=== PATIENT | male | born 1985 | race Caucasian/White ===

== ENCOUNTER 2017-12-13 10:50 | Outpatient (CLI) | payer SELFPAY | END 2017-12-13 10:51 | LOC: LAB.R 10:50 | PROVIDERS: ATTEND Nurse Practitioner Family | DX: R36.0 Urethral discharge without blood (principal) | CPT/HCPCS: 87491; 87591 ==

== ENCOUNTER 2018-03-15 08:00 | Outpatient (CLI) | payer SELFPAY | END 2018-03-15 08:01 | disposition home or self-care (01) | LOC: LAB.R 08:00 | PROVIDERS: ATTEND Nurse Practitioner Family | DX: L98.9 Disorder of the skin and subcutaneous tissue, unspecified (principal) | CPT/HCPCS: 87070; 87205 ==

== ENCOUNTER 2018-03-25 11:45 | Emergency (ER) | payer SELFPAY ==
[2018-03-25 11:54] VITALS: BP 99/58
[2018-03-25] MEDS ORDERED: DEXAMETHASONE 10 MG/ML VIAL PO STA (13:03)
--- NOTE | 2018-03-25 13:06 | ED Physician Documentation ---
PD HPI SKIN - Stated complaint Stated Complaint: RASH ALL OVER - Chief complaint Chief Complaint: General - History obtained from History obtained from: Patient - History of Present Illness Timing - onset: How many days ago (2) Timing - duration: Days (2) Timing - details: Gradual onset, Still present Location: Bodywide Quality / character: Itchy, Discolored, Swelling Contributing factors: Exposed to medication Similar symptoms before: Has not had sx before Recently seen: Clinic - Additional information Additional information: 32-year-old male who was recently seen for a staph infection on his leg and placed onto some Septra has began to develop a rash that is body wide. He denies any involvement of his mucous membranes and he denies any sloughing of his skin anywhere on his body. He believes his infection in his leg is improving. He has been on the medication about 1 week. Review of Systems Constitutional: reports: Fever Eyes: denies: Decreased vision Ears: denies: Ear pain Nose: denies: Congestion Throat: denies: Sore throat Cardiac: denies: Chest pain / pressure, Palpitations Respiratory: reports: Cough. denies: Dyspnea GI: denies: Abdominal Pain, Nausea, Vomiting : denies: Dysuria, Frequency Skin: reports: Rash PD PAST MEDICAL HISTORY - Present Medications Home Medications: Ambulatory Orders Medication Instructions Recorded Confirmed Sulfamethox/Trimeth 800/160 1 each PO BID 03/25/18 03/25/18 [Bactrim Ds 800/160] diphenhydrAMINE [Benadryl] 25 mg PO ONCE 03/25/18 03/25/18 predniSONE [Deltasone] 10 mg PO DAILY #26 tablet 03/25/18 - Allergies Allergies/Adverse Reactions: Allergies Allergy/AdvReac Type Severity Reaction Status Date / Time No Known Drug Allergies Allergy Verified 03/25/18 11:54 PD ED PE NORMAL - Vitals Vital signs reviewed: Yes (febrile ) - General General: Alert and oriented X 3, No acute distress, Well developed/nourished - HEENT HEENT: Atraumatic, PERRL, EOMI - Neck Neck: Supple, no meningeal sign - Cardiac Cardiac: RRR, No murmur - Respiratory Respiratory: No respiratory distress, Clear bilaterally - Abdomen Abdomen: Soft, Non tender - Back Back: No CVA TTP, No spinal TTP - Derm Derm: Normal color, Warm and dry, Other (There is a fine erythematous rash to the body. There is confluence in the chest and abdomen. Rash is consistent with reaction to septra.) - Extremities Extremities: No deformity, No edema, Other (exam of the area of prior infection appears to have little active inflammation on the lateral aspect of the right calf. ) - Neuro Neuro: No motor deficit, No sensory deficit Eye Opening: Spontaneous Motor: Obeys Commands Verbal: Oriented GCS Score: 15 - Psych Psych: Normal mood, Normal affect Results - Vitals Vitals: Vital Signs - 24 hr 03/25/18 11:52 Temperature 37.9 C H Heart Rate 99 Respiratory 14 Rate Blood Pressure 99/58 L O2 Saturation 100 Oxygen O2 Source Room air PD MEDICAL DECISION MAKING - ED course Complexity details: considered differential, d/w patient ED course: 32-year-old male developed a rash body wide after a week on Septra. He is taken off the Septra will give him a dose of dexamethasone IV examined his leg I do not find evidence of acute inflammation associated with this and we will stop antibiotic at this point. Departure - Departure Disposition: 01 Home, Self Care Clinical Impression: Allergic reaction caused by a drug Qualifiers: Encounter type: initial encounter Qualified Code(s): T78.40XA - Allergy, unspecified, initial encounter Condition: Stable Instructions: ED Drug React Allergic Follow-Up: Svitlana Gutierrez ARNP [Primary Care Provider] - Prescriptions: predniSONE [Deltasone] 10 mg PO DAILY #26 tablet Discharge Date/Time: 03/25/18 13:15
[2018-03-25] MEDS ORDERED: CHERRY SYRUP 10 ML UDC PO ONE (13:18)
== END 2018-03-25 13:15 | disposition home or self-care (01) ==
LOC: ED 11:45
DX: L27.0 Generalized skin eruption due to drugs and medicaments taken internally (principal); T36.8X5A Adverse effect of other systemic antibiotics, initial encounter
CPT/HCPCS: 99283; A9270

== ENCOUNTER 2019-01-31 10:52 | Outpatient (CLI) | payer SELFPAY | END 2019-01-31 10:53 | disposition home or self-care (01) | LOC: LAB.F 10:52 | PROVIDERS: ATTEND Nurse Practitioner Family | DX: Z20.6 Contact with and (suspected) exposure to human immunodeficiency virus [HIV] (principal) | CPT/HCPCS: 36415; 87389 ==

== ENCOUNTER 2019-05-16 15:47 | Outpatient (CLI) | payer SELFPAY ==
[2019-05-16 16:20] LABS: CALCIUM 9.2 mg/dL (8.5-10.3); CREATININE 1.1 mg/dL (0.6-1.2)
== END 2019-05-16 15:48 | disposition home or self-care (01) ==
LOC: LAB 15:47
PROVIDERS: ATTEND Internal Medicine
DX: B20 Human immunodeficiency virus [HIV] disease (principal)
CPT/HCPCS: 80048; 81599

== ENCOUNTER 2019-07-11 11:41 | Outpatient (CLI) | payer OTHER ==
[2019-07-11 17:57] LABS: BASOPHILS % (AUTO) 0.6 %; EOSINOPHILS % (AUTO) 0.2 %; LYMPHOCYTES # (AUTO) 1.8 10^3/uL (1.5-3.5); LYMPHOCYTES % (AUTO) 33.8 %; MEAN CORPUSCULAR HEMOGLOBIN 31.2 pg (27.0-31.0); MEAN CORPUSCULAR HGB CONC 33.4 g/dL (32.0-36.0); MEAN CORPUSCULAR VOLUME 93.3 fL (80.0-94.0); MEAN PLATELET VOLUME 10.7 fL (7.4-11.4); MONOCYTES # (AUTO) 0.6 10^3/uL (0.0-1.0); MONOCYTES % (AUTO) 10.1 %; NEUTROPHILS % (AUTO) 54.9 %; PLT - PLATELET COUNT 254 10^3/uL (130-450); RED BLOOD COUNT 4.49 10^6/uL (4.70-6.10); RED CELL DISTRIBUTION WIDTH 13.2 % (12.0-15.0); WHITE BLOOD COUNT 5.4 x10^3/uL (4.8-10.8)
[2019-07-11 18:22] LABS: ALBUMIN 4.4 g/dL (3.2-5.5); ALBUMIN/GLOBULIN RATIO 1.3 (1.0-2.2); BILIRUBIN,TOTAL 1.4 mg/dL (0.2-1.0); CALCIUM 8.9 mg/dL (8.5-10.3); TOTAL PROTEIN 7.8 g/dL (6.7-8.2)
== END 2019-07-11 11:42 | disposition home or self-care (01) ==
LOC: LAB.S 11:41
PROVIDERS: ATTEND Internal Medicine
DX: B20 Human immunodeficiency virus [HIV] disease (principal)
CPT/HCPCS: 36415; 80053; 81599; 85025; 87536

== ENCOUNTER 2019-09-13 10:39 | Outpatient (CLI) | payer OTHER ==
[2019-09-13 17:41] LABS: BASOPHILS % (AUTO) 0.6 %; EOSINOPHILS # (AUTO) 0.3 10^3/uL (0.0-0.7); EOSINOPHILS % (AUTO) 4.1 %; HGB - HEMOGLOBIN 14.4 g/dL (14.0-18.0); LYMPHOCYTES # (AUTO) 1.8 10^3/uL (1.5-3.5); LYMPHOCYTES % (AUTO) 25.8 %; MEAN CORPUSCULAR HEMOGLOBIN 31.6 pg (27.0-31.0); MEAN CORPUSCULAR HGB CONC 33.1 g/dL (32.0-36.0); MEAN CORPUSCULAR VOLUME 95.6 fL (80.0-94.0); MEAN PLATELET VOLUME 10.5 fL (7.4-11.4); MONOCYTES # (AUTO) 0.6 10^3/uL (0.0-1.0); MONOCYTES % (AUTO) 8.6 %; NEUTROPHILS # (AUTO) 4.3 10^3/uL (1.5-6.6); NEUTROPHILS % (AUTO) 60.6 %; PLT - PLATELET COUNT 297 10^3/uL (130-450); RED BLOOD COUNT 4.55 10^6/uL (4.70-6.10); RED CELL DISTRIBUTION WIDTH 12.1 % (12.0-15.0); WHITE BLOOD COUNT 7.1 x10^3/uL (4.8-10.8)
[2019-09-13 18:04] LABS: ALBUMIN 4.4 g/dL (3.2-5.5); ALBUMIN/GLOBULIN RATIO 1.2 (1.0-2.2); BILIRUBIN,TOTAL 0.8 mg/dL (0.2-1.0); CALCIUM 9.1 mg/dL (8.5-10.3); CREATININE 0.8 mg/dL (0.6-1.2)
== END 2019-09-13 10:40 | disposition home or self-care (01) ==
LOC: LAB.S 10:39
PROVIDERS: ATTEND Internal Medicine
DX: B20 Human immunodeficiency virus [HIV] disease (principal)
CPT/HCPCS: 36415; 80053; 81599; 85025; 87389; 87536

== ENCOUNTER 2020-01-10 14:14 | Outpatient (CLI) | payer BC, OTHER ==
[2020-01-10 15:01] LABS: BASOPHILS % (AUTO) 0.4 %; LYMPHOCYTES # (AUTO) 2.2 10^3/uL (1.5-3.5); LYMPHOCYTES % (AUTO) 25.1 %; MEAN CORPUSCULAR HEMOGLOBIN 32.5 pg (27.0-31.0); MEAN CORPUSCULAR HGB CONC 35.6 g/dL (32.0-36.0); MEAN CORPUSCULAR VOLUME 91.2 fL (80.0-94.0); MEAN PLATELET VOLUME 9.4 fL (7.4-11.4); MONOCYTES # (AUTO) 0.6 10^3/uL (0.0-1.0); MONOCYTES % (AUTO) 7.4 %; NEUTROPHILS # (AUTO) 5.7 10^3/uL (1.5-6.6); NEUTROPHILS % (AUTO) 66.6 %; PLT - PLATELET COUNT 244 10^3/uL (130-450); RED BLOOD COUNT 4.31 10^6/uL (4.70-6.10); RED CELL DISTRIBUTION WIDTH 11.9 % (12.0-15.0); WHITE BLOOD COUNT 8.6 x10^3/uL (4.8-10.8)
[2020-01-10 15:16] LABS: ALBUMIN 4.4 g/dL (3.2-5.5); ALBUMIN/GLOBULIN RATIO 1.4 (1.0-2.2); BILIRUBIN,TOTAL 0.7 mg/dL (0.2-1.0); TOTAL PROTEIN 7.5 g/dL (6.7-8.2)
== END 2020-01-10 14:15 | disposition home or self-care (01) ==
LOC: LAB 14:14
PROVIDERS: ATTEND Internal Medicine
DX: B20 Human immunodeficiency virus [HIV] disease (principal)
CPT/HCPCS: 36415; 80053; 81599; 85025; 87536

== ENCOUNTER 2020-04-10 14:05 | Outpatient (CLI) | payer BC ==
[2020-04-10 14:49] LABS: BASOPHILS % (AUTO) 0.5 %; EOSINOPHILS % (AUTO) 0.5 %; HGB - HEMOGLOBIN 14.5 g/dL (14.0-18.0); LYMPHOCYTES # (AUTO) 2.4 10^3/uL (1.5-3.5); MEAN CORPUSCULAR HEMOGLOBIN 31.1 pg (27.0-31.0); MEAN CORPUSCULAR VOLUME 91.4 fL (80.0-94.0); MEAN PLATELET VOLUME 9.9 fL (7.4-11.4); MONOCYTES # (AUTO) 0.7 10^3/uL (0.0-1.0); MONOCYTES % (AUTO) 8.4 %; NEUTROPHILS # (AUTO) 4.8 10^3/uL (1.5-6.6); NEUTROPHILS % (AUTO) 60.3 %; PLT - PLATELET COUNT 261 10^3/uL (130-450); RED BLOOD COUNT 4.66 10^6/uL (4.70-6.10); RED CELL DISTRIBUTION WIDTH 11.9 % (12.0-15.0)
[2020-04-10 15:00] LABS: ALBUMIN 4.8 g/dL (3.2-5.5); ALBUMIN/GLOBULIN RATIO 1.4 (1.0-2.2); BILIRUBIN,TOTAL 0.9 mg/dL (0.2-1.0); CALCIUM 9.4 mg/dL (8.5-10.3); CREATININE 0.9 mg/dL (0.6-1.2); TOTAL PROTEIN 8.3 g/dL (6.7-8.2)
== END 2020-04-10 14:06 | disposition home or self-care (01) ==
LOC: LAB 14:05
PROVIDERS: ATTEND Internal Medicine
DX: B20 Human immunodeficiency virus [HIV] disease (principal)
CPT/HCPCS: 36415; 80053; 81599; 85025; 87536

== ENCOUNTER 2020-06-24 12:51 | Outpatient (CLI) | payer BC | END 2020-06-24 12:52 | disposition home or self-care (01) | LOC: LAB.S 12:51 | PROVIDERS: ATTEND Internal Medicine | DX: B20 Human immunodeficiency virus [HIV] disease (principal) | CPT/HCPCS: 36415; 81599; 87536 ==

== ENCOUNTER 2020-10-15 13:22 | Outpatient (CLI) | payer BC ==
[2020-10-15 20:55] LABS: ALBUMIN 4.5 g/dL (3.2-5.5); ALBUMIN/GLOBULIN RATIO 1.5 (1.0-2.2); BILIRUBIN,TOTAL 0.8 mg/dL (0.2-1.0); CREATININE 0.8 mg/dL (0.6-1.2); TOTAL PROTEIN 7.6 g/dL (6.7-8.2)
[2020-10-21 10:38] LABS: HIV AG/AB 4TH GEN REPEATEDLY REACTIVE (NON-REACTIVE)
== END 2020-10-15 13:23 | disposition home or self-care (01) ==
LOC: LAB.S 13:22
PROVIDERS: ATTEND Internal Medicine
DX: Z21 Asymptomatic human immunodeficiency virus [HIV] infection status (principal)
CPT/HCPCS: 36415; 80053; 81599; 87389

== ENCOUNTER 2020-10-20 20:40 | Outpatient (CLI) | payer BC | END 2020-10-20 20:41 | disposition home or self-care (01) | LOC: COV 20:40 | PROVIDERS: ATTEND Family Medicine | DX: M79.10 Myalgia, unspecified site (principal); R07.0 Pain in throat; Z20.828 Contact with and (suspected) exposure to other viral communicable diseases ==

== ENCOUNTER 2020-10-29 12:19 | Outpatient (CLI) | payer BC ==
[2020-10-29 15:56] LABS: ALBUMIN 4.4 g/dL (3.2-5.5); ALBUMIN/GLOBULIN RATIO 1.6 (1.0-2.2); BILIRUBIN,TOTAL 1.1 mg/dL (0.2-1.0); CALCIUM 9.3 mg/dL (8.5-10.3); CREATININE 0.9 mg/dL (0.6-1.2); TOTAL PROTEIN 7.2 g/dL (6.7-8.2)
== END 2020-10-29 12:20 | disposition home or self-care (01) ==
LOC: LAB.S 12:19
PROVIDERS: ATTEND Internal Medicine
DX: Z21 Asymptomatic human immunodeficiency virus [HIV] infection status (principal)
CPT/HCPCS: 36415; 80053; 81599; 86361; 87536

== ENCOUNTER 2021-04-16 12:24 | Outpatient (CLI) | payer BC ==
[2021-04-16 12:52] LABS: ALBUMIN 4.6 g/dL (3.2-5.5); ALBUMIN/GLOBULIN RATIO 1.4 (1.0-2.2); BILIRUBIN,TOTAL 0.9 mg/dL (0.2-1.0); CALCIUM 9.1 mg/dL (8.5-10.3); CREATININE 0.9 mg/dL (0.6-1.2); POTASSIUM 3.5 mmol/L (3.5-5.0); TOTAL PROTEIN 7.8 g/dL (6.7-8.2)
== END 2021-04-16 12:25 | disposition home or self-care (01) ==
LOC: LAB 12:24
PROVIDERS: ATTEND Internal Medicine
DX: B20 Human immunodeficiency virus [HIV] disease (principal)
CPT/HCPCS: 36415; 80053; 81599; 86359; 86360; 87389

== ENCOUNTER 2021-04-30 11:36 | Outpatient (CLI) | payer BC | END 2021-04-30 11:37 | disposition home or self-care (01) | LOC: LAB 11:36 | PROVIDERS: ATTEND Internal Medicine | DX: B20 Human immunodeficiency virus [HIV] disease (principal) | CPT/HCPCS: 36415; 81599; 87536 ==

== ENCOUNTER 2021-04-30 11:57 | Outpatient (CLI) | payer BC, OTHER | END 2021-04-30 11:58 | disposition home or self-care (01) | LOC: LAB 11:57 | PROVIDERS: ATTEND Internal Medicine | DX: B20 Human immunodeficiency virus [HIV] disease (principal) | CPT/HCPCS: 36415; 81599 ==

== ENCOUNTER 2021-06-03 11:12 | Outpatient (CLI) | payer BC | END 2021-06-03 11:13 | disposition home or self-care (01) | LOC: LAB.S 11:12 | PROVIDERS: ATTEND Internal Medicine | DX: B20 Human immunodeficiency virus [HIV] disease (principal) | CPT/HCPCS: 81599; 87536 ==

== ENCOUNTER 2021-10-20 14:22 | Outpatient (CLI) | payer BC ==
[2021-10-20 14:53] LABS: BASOPHILS % (AUTO) 0.5 %; HCT - HEMATOCRIT 40.6 % (42.0-52.0); HGB - HEMOGLOBIN 14.3 g/dL (14.0-18.0); LYMPHOCYTES % (AUTO) 26.5 %; MEAN CORPUSCULAR HEMOGLOBIN 32.9 pg (27.0-31.0); MEAN CORPUSCULAR HGB CONC 35.2 g/dL (32.0-36.0); MEAN CORPUSCULAR VOLUME 93.3 fL (80.0-94.0); MEAN PLATELET VOLUME 9.6 fL (7.4-11.4); MONOCYTES # (AUTO) 0.7 10^3/uL (0.0-1.0); MONOCYTES % (AUTO) 9.5 %; NEUTROPHILS # (AUTO) 4.8 10^3/uL (1.5-6.6); NEUTROPHILS % (AUTO) 63.4 %; PLT - PLATELET COUNT 241 10^3/uL (130-450); RED BLOOD COUNT 4.35 10^6/uL (4.70-6.10); RED CELL DISTRIBUTION WIDTH 11.7 % (12.0-15.0); WHITE BLOOD COUNT 7.5 x10^3/uL (4.8-10.8)
[2021-10-20 15:01] LABS: ALBUMIN 4.5 g/dL (3.2-5.5); ALBUMIN/GLOBULIN RATIO 1.4 (1.0-2.2); BILIRUBIN,TOTAL 0.8 mg/dL (0.2-1.0); CALCIUM 9.2 mg/dL (8.5-10.3); POTASSIUM 3.5 mmol/L (3.5-5.0); TOTAL PROTEIN 7.7 g/dL (6.7-8.2)
== END 2021-10-20 14:23 | disposition home or self-care (01) ==
LOC: LAB 14:22
PROVIDERS: ATTEND Internal Medicine
DX: B20 Human immunodeficiency virus [HIV] disease (principal)
CPT/HCPCS: 36415; 80053; 81599; 85025; 87536

== ENCOUNTER 2022-11-28 16:08 | Emergency (ER) | payer BC, OTHER ==
[2022-11-28 16:21] VITALS: BP 125/76
--- NOTE | 2022-11-28 16:39 | ED Physician Documentation ---
History of Present Illness - Stated complaint Stated Complaint: LT CHEST PX - Chief complaint Chief Complaint: Cardiac - History obtained from History obtained from: Patient - History of Present Illness Timing: How many days ago (2) Pain level max: 6 Pain level now: 5 - Additonal information Additional information: 37-year-old male, HIV positive presents to the emergency department with left- sided pleuritic chest pain. Ongoing for the past 2 days. Has been constant. Worse with taking a deep breath. Nothing makes it better. Mildly short of breath. No fevers. No chills. Mild cough. He does smoke marijuana and tobacco. No history of cardiac issues in the past. Pain is described as sharp. No recent illnesses. No recent immobilization, travel, surgery. No history of blood clots. Review of Systems Constitutional: denies: Fever, Chills Nose: denies: Rhinorrhea / runny nose, Congestion Respiratory: denies: Cough GI: denies: Abdominal Pain, Nausea, Vomiting, Diarrhea Skin: denies: Rash Musculoskeletal: denies: Neck pain, Back pain Neurologic: denies: Headache PD PAST MEDICAL HISTORY - Past Medical History Past Medical History: Yes Other Past Medical History: HIV - Present Medications Home Medications: Ambulatory Orders Medication Instructions Recorded Confirmed Elviteg/Mary/Emtric/Tenofo Dis 1 tab ORAL DAILY 11/28/22 11/28/22 [Stribild Tablet] - Allergies Allergies/Adverse Reactions: Allergies Allergy/AdvReac Type Severity Reaction Status Date / Time Sulfa (Sulfonamide Allergy Rash Verified 11/28/22 16:16 Antibiotics) - Living Situation Living Arrangement: reports: At home - Social History Does the pt smoke?: Yes Does the pt drink ETOH?: Yes Does the pt have substance abuse?: Yes Substance Use and Type: Marijuana - Family History Family history: reports: Non contributory PD ED PE NORMAL - Vitals Vital signs reviewed: Yes - General General: Alert and oriented X 3, No acute distress - HEENT HEENT: PERRL, Moist mucous membranes - Neck Neck: Supple, no meningeal sign - Cardiac Cardiac: RRR, Strong equal pulses - Respiratory Respiratory: No respiratory distress, Clear bilaterally - Abdomen Abdomen: Soft, Non tender, Non distended - Back Back: No CVA TTP, No spinal TTP - Derm Derm: Warm and dry, No rash - Extremities Extremities: No edema, No calf tenderness / cord - Neuro Neuro: Alert and oriented X 3 - Psych Psych: Normal mood, Normal affect Results - Vitals Vitals: Vital Signs - 24 hr 11/28/22 16:16 Temperature 36.9 C Heart Rate 86 Respiratory 18 Rate Blood Pressure 125/76 O2 Saturation 99 Oxygen O2 Source Room air - EKG (time done) 1618 Rate: Rate (enter#) (82) Rhythm: NSR [place]: Normal Intervals: Normal AR QRS: Normal Ischemia: ST elevation c/w repol - Labs Labs: Laboratory Tests 11/28/22 11/28/22 11/28/22 16:30 16:30 16:30 WBC 10.7 RBC 4.68 L Hgb 14.8 Hct 42.7 MCV 91.2 MCH 31.6 H MCHC 34.7 RDW 11.8 L Plt Count 277 MPV 9.8 Neut # (Auto) 7.1 H Lymph # (Auto) 2.5 [place] # (Auto) 1.0 Eos # (Auto) 0.0 Baso # (Auto) 0.1 Absolute Nucleated RBC 0.00 Nucleated RBC % 0.0 Sodium 135 Potassium 3.3 L Chloride 99 L Carbon Dioxide 28 Anion Gap 8.0 BUN 24 H Creatinine 1.4 H Estimated GFR (MDRD) 57 L Glucose 154 H Calcium 9.0 Total Bilirubin 0.8 AST 21 ALT 17 Alkaline Phosphatase 54 Troponin I High Sens 2.4 Total Protein 8.0 Albumin 4.3 Globulin 3.7 Albumin/Globulin Ratio 1.2 Lipase 32 PD Medical Decision Making - ED course Complexity details: reviewed results, re-evaluated patient, considered differential (No ST elevation [place], no aortic dissection, no PE, no tension pneumothorax, no aortic aneurysm), d/w patient Reviewed Lab Results: No acute findings on EKG, laboratory testing, CBC, abdominal panel, negative high-sensitivity troponin after 2 days of pain. No acute findings on chest x- ray. CT pulmonary angiogram negative for PE, does have a trace pleural effusion. ED course: Patient with what appears to be pleurisy/pleural effusion causing his pain. This is a trace effusion. No PE. No evidence of ACS. Declines any pain medication here for home. No hypoxia. No respiratory distress. We will have him follow-up with his doctor for further care. Patient counseled regarding signs and symptoms for which I believe and urgent re-evaluation would be necessary. Patient with good understanding of and agreement to plan and is comfortable going home at this time This document was made in part using voice recognition software. While efforts are made to proofread this document, sound alike and grammatical errors may occur. Departure - Departure Disposition: 01 Home, Self Care Clinical Impression: Pleural effusion Chest pain Qualifiers: Chest pain type: unspecified Qualified Code(s): R07.9 - Chest pain, unspecified Condition: Good Instructions: ED Chest Pain Atypical Unkn Cause, ED Effusion Pleural, ED Chest Pain Pleurisy Follow-Up: KIMI ARMENDARIZ [Primary Care Provider] - Within 1 week Comments: You can continue Motrin and Tylenol as needed for pain at home. Please follow- up with your doctor for further care. Your EKG and chest x-ray do not show any acute abnormalities, your CT angiogram of the chest does not show any blood clots but does show a Trace pleural effusion on the left side, this may be causing your pain. Please make sure you continue to take deep full breaths at home. Please follow-up with your doctor for a repeat x-ray in 1 to 2 weeks. Return if you worsen. CT CHEST FINDINGS: Image quality: Excellent. Pulmonary arteries: Pulmonary arteries are normal in size, and demonstrate no intraluminal filling defects to suggest central pulmonary embolism. Lungs and pleura: There is a trace left-sided pleural effusion, with overlying minimal atelectasis. No pneumothorax. Central and peripheral airways are patent. Mediastinum: Heart size is normal, without pericardial effusion. No mediastinal or hilar adenopathy. Thoracic aorta is normal in caliber and enhancement. Esophagus is normal in caliber, without hiatal hernia. Bones and chest wall: No suspicious bony lesions. Ribs and thoracic spine appear intact throughout. No axillary or supraclavicular adenopathy. The thyroid is normal in size and there are no incidental findings. Abdomen: Visualized upper abdominal solid organs appear normal in the early arterial phase of enhancement. IMPRESSION: Negative for pulmonary embolism. Trace left-sided pleural fusion, with associated overlying minimal atelectasis. Discharge Date/Time: 11/28/22 18:06
--- NOTE | 2022-11-28 16:53 | XRAY Report ---
PROCEDURE: Chest 1 View X-Ray INDICATIONS: Chest Pain TECHNIQUE: One view of the chest was acquired. COMPARISON: None. FINDINGS: Surgical changes and devices: None. Lungs and pleura: No pleural effusions or pneumothorax. Lungs are clear. Mediastinum: Mediastinal contours appear normal. Heart size is normal. Bones and chest wall: No suspicious bony lesions. Overlying soft tissues appear unremarkable. IMPRESSION: Portable chest within normal limits for age. Reviewed by: Hubert Camp MD on 11/28/2022 3:52 PM [facility] Approved by: Hubert Camp MD on 11/28/2022 3:52 PM [facility] Station ID: [id number]
[2022-11-28] MEDS ORDERED: iohexoL-300 100 ML VIAL ONE (16:55)
[2022-11-28 16:57] LABS: BASOPHILS # (AUTO) 0.1 10^3/uL (0.0-0.1); BASOPHILS % (AUTO) 0.5 %; HCT - HEMATOCRIT 42.7 % (42.0-52.0); HGB - HEMOGLOBIN 14.8 g/dL (14.0-18.0); LYMPHOCYTES # (AUTO) 2.5 10^3/uL (1.5-3.5); LYMPHOCYTES % (AUTO) 23.3 %; MEAN CORPUSCULAR HEMOGLOBIN 31.6 pg (27.0-31.0); MEAN CORPUSCULAR HGB CONC 34.7 g/dL (32.0-36.0); MEAN CORPUSCULAR VOLUME 91.2 fL (80.0-94.0); MEAN PLATELET VOLUME 9.8 fL (7.4-11.4); MONOCYTES % (AUTO) 9.7 %; NEUTROPHILS # (AUTO) 7.1 10^3/uL (1.5-6.6); NEUTROPHILS % (AUTO) 66.3 %; PLT - PLATELET COUNT 277 10^3/uL (130-450); RED BLOOD COUNT 4.68 10^6/uL (4.70-6.10); RED CELL DISTRIBUTION WIDTH 11.8 % (12.0-15.0); WHITE BLOOD COUNT 10.7 x10^3/uL (4.8-10.8)
[2022-11-28 17:12] LABS: ALBUMIN 4.3 g/dL (3.2-5.5); ALBUMIN/GLOBULIN RATIO 1.2 (1.0-2.2); BILIRUBIN,TOTAL 0.8 mg/dL (0.2-1.0); CREATININE 1.4 mg/dL (0.6-1.2); POTASSIUM 3.3 mmol/L (3.5-5.0)
[2022-11-28] MEDS ORDERED: iohexoL-300 100 ML VIAL IVP ONE (17:36)
--- NOTE | 2022-11-28 17:46 | CT Report ---
PROCEDURE: ANGIO CHEST W/WO INDICATIONS: L sided pleuritic chest pain, h/o HIV CONTRAST: 80ml omni 300 TECHNIQUE: After the administration of intravenous contrast, 2 mm axial images were acquired from the pulmonary apices to the posterior costophrenic angles during the arterial phase. In addition, 1 mm lung kernel and 5 mm soft tissue kernel reconstructions were performed. 3-dimensional coronal oblique maximum int ensity projection (MIP) reformats, 8 mm axial MIP, and 5 mm coronal and sagittal MPR reformats were t hen performed through the thorax. For radiation dose reduction, the following was used: automated exp osure control, adjustment of mA and/or kV according to patient size. COMPARISON: Correlation is made with the accompanying chest radiograph. FINDINGS: Image quality: Excellent. Pulmonary arteries: Pulmonary arteries are normal in size, and demonstrate no intraluminal filling d efects to suggest central pulmonary embolism. Lungs and pleura: There is a trace left-sided pleural effusion, with overlying minimal atelectasis. N o pneumothorax. Central and peripheral airways are patent. Mediastinum: Heart size is normal, without pericardial effusion. No mediastinal or hilar adenopathy . Thoracic aorta is normal in caliber and enhancement. Esophagus is normal in caliber, without hiat al hernia. Bones and chest wall: No suspicious bony lesions. Ribs and thoracic spine appear intact throughout. No axillary or supraclavicular adenopathy. The thyroid is normal in size and there are no incident al findings. Abdomen: Visualized upper abdominal solid organs appear normal in the early arterial phase of enhanc ement. IMPRESSION: Negative for pulmonary embolism. Trace left-sided pleural fusion, with associated overlying minimal atelectasis. Reviewed by: Hubert Camp MD on 11/28/2022 4:44 PM [facility] Approved by: Hubert Camp MD on 11/28/2022 4:44 PM [facility] Station ID: [id number]
== END 2022-11-28 18:06 | disposition home or self-care (01) ==
LOC: ED 16:08
DX: R07.9 Chest pain, unspecified (principal); J90 Pleural effusion, not elsewhere classified; B20 Human immunodeficiency virus [HIV] disease; F17.200 Nicotine dependence, unspecified, uncomplicated
CPT/HCPCS: 36415; 71045; 71275; 80053; 83690; 84484; 85025; 93005; 99284; Q9967

== ENCOUNTER 2023-01-02 10:58 | Outpatient (CLI) | payer OTHER ==
[2023-01-02 11:21] LABS: BASOPHILS # (AUTO) 0.1 10^3/uL (0.0-0.1); BASOPHILS % (AUTO) 0.8 %; EOSINOPHILS % (AUTO) 0.2 %; HCT - HEMATOCRIT 40.6 % (42.0-52.0); HGB - HEMOGLOBIN 14.1 g/dL (14.0-18.0); LYMPHOCYTES # (AUTO) 2.2 10^3/uL (1.5-3.5); LYMPHOCYTES % (AUTO) 32.9 %; MEAN CORPUSCULAR HEMOGLOBIN 31.8 pg (27.0-31.0); MEAN CORPUSCULAR HGB CONC 34.7 g/dL (32.0-36.0); MEAN CORPUSCULAR VOLUME 91.4 fL (80.0-94.0); MEAN PLATELET VOLUME 9.4 fL (7.4-11.4); MONOCYTES # (AUTO) 0.5 10^3/uL (0.0-1.0); MONOCYTES % (AUTO) 7.5 %; NEUTROPHILS # (AUTO) 3.8 10^3/uL (1.5-6.6); NEUTROPHILS % (AUTO) 58.4 %; PLT - PLATELET COUNT 252 10^3/uL (130-450); RED BLOOD COUNT 4.44 10^6/uL (4.70-6.10); WHITE BLOOD COUNT 6.6 x10^3/uL (4.8-10.8)
[2023-01-02 11:55] LABS: ALBUMIN 4.6 g/dL (3.2-5.5); ALBUMIN/GLOBULIN RATIO 1.4 (1.0-2.2); CALCIUM 9.2 mg/dL (8.5-10.3); POTASSIUM 3.4 mmol/L (3.5-5.0); TOTAL PROTEIN 7.8 g/dL (6.7-8.2)
[2023-01-05 10:09] LABS: HIV-1 RNA BY PCR QUANT <20 copies/mL (.)
== END 2023-01-02 10:59 | disposition home or self-care (01) ==
LOC: LAB 10:58
PROVIDERS: ATTEND Internal Medicine
DX: B20 Human immunodeficiency virus [HIV] disease (principal)
CPT/HCPCS: 36415; 80053; 85025; 87536

== ENCOUNTER 2023-07-17 10:28 | Outpatient (CLI) | payer OTHER ==
[2023-07-17 10:46] LABS: BASOPHILS # (AUTO) 0.1 10^3/uL (0.0-0.1); BASOPHILS % (AUTO) 0.8 %; EOSINOPHILS # (AUTO) 0.1 10^3/uL (0.0-0.7); EOSINOPHILS % (AUTO) 1.8 %; HCT - HEMATOCRIT 41.3 % (42.0-52.0); HGB - HEMOGLOBIN 14.4 g/dL (14.0-18.0); LYMPHOCYTES # (AUTO) 2.1 10^3/uL (1.5-3.5); LYMPHOCYTES % (AUTO) 34.8 %; MEAN CORPUSCULAR HGB CONC 34.9 g/dL (32.0-36.0); MEAN CORPUSCULAR VOLUME 91.8 fL (80.0-94.0); MEAN PLATELET VOLUME 9.3 fL (7.4-11.4); MONOCYTES # (AUTO) 0.5 10^3/uL (0.0-1.0); NEUTROPHILS # (AUTO) 3.3 10^3/uL (1.5-6.6); NEUTROPHILS % (AUTO) 54.4 %; PLT - PLATELET COUNT 273 10^3/uL (130-450); RED CELL DISTRIBUTION WIDTH 11.9 % (12.0-15.0)
[2023-07-17 11:01] LABS: ALBUMIN 4.7 g/dL (3.2-5.5); ALBUMIN/GLOBULIN RATIO 1.7 (1.0-2.2); BILIRUBIN,TOTAL 0.9 mg/dL (0.2-1.0); CALCIUM 9.6 mg/dL (8.5-10.3); CREATININE 1.1 mg/dL (0.6-1.3); POTASSIUM 3.7 mmol/L (3.5-4.5); TOTAL PROTEIN 7.5 g/dL (6.4-8.9)
[2023-07-21 08:10] LABS: HIV-1 RNA BY PCR QUANT <20 copies/mL (.)
== END 2023-07-17 10:29 | disposition home or self-care (01) ==
LOC: LAB 10:28
PROVIDERS: ATTEND Internal Medicine
DX: B20 Human immunodeficiency virus [HIV] disease (principal)
CPT/HCPCS: 36415; 80053; 85025; 87536

== ENCOUNTER 2024-01-01 17:16 | Outpatient (CLI) | payer OTHER ==
[2024-01-01 17:47] LABS: BASOPHILS # (AUTO) 0.1 10^3/uL (0.0-0.1); BASOPHILS % (AUTO) 0.8 %; HCT - HEMATOCRIT 38.8 % (42.0-52.0); HGB - HEMOGLOBIN 13.4 g/dL (14.0-18.0); LYMPHOCYTES # (AUTO) 2.8 10^3/uL (1.5-3.5); LYMPHOCYTES % (AUTO) 32.6 %; MEAN CORPUSCULAR HEMOGLOBIN 31.7 pg (27.0-31.0); MEAN CORPUSCULAR HGB CONC 34.5 g/dL (32.0-36.0); MEAN CORPUSCULAR VOLUME 91.7 fL (80.0-94.0); MEAN PLATELET VOLUME 9.8 fL (7.4-11.4); MONOCYTES # (AUTO) 0.6 10^3/uL (0.0-1.0); MONOCYTES % (AUTO) 7.1 %; NEUTROPHILS % (AUTO) 59.3 %; PLT - PLATELET COUNT 276 10^3/uL (130-450); RED BLOOD COUNT 4.23 10^6/uL (4.70-6.10); RED CELL DISTRIBUTION WIDTH 12.1 % (12.0-15.0); WHITE BLOOD COUNT 8.5 x10^3/uL (4.8-10.8)
[2024-01-01 18:04] LABS: ALBUMIN 4.6 g/dL (3.2-5.5); ALBUMIN/GLOBULIN RATIO 1.6 (1.0-2.2); BILIRUBIN,TOTAL 0.6 mg/dL (0.2-1.0); CALCIUM 9.6 mg/dL (8.5-10.3); CREATININE 1.1 mg/dL (0.6-1.3); POTASSIUM 3.3 mmol/L (3.5-4.5); TOTAL PROTEIN 7.4 g/dL (6.4-8.9)
[2024-01-03 17:08] LABS: HIV-1 RNA BY PCR QUANT <20 copies/mL (.)
== END 2024-01-01 17:17 | disposition home or self-care (01) ==
LOC: LAB 17:16
PROVIDERS: ATTEND Internal Medicine
DX: B20 Human immunodeficiency virus [HIV] disease (principal)
CPT/HCPCS: 36415; 80053; 85025; 87536